=== PATIENT | male | born 1965 | race African-American/Black ===

== ENCOUNTER 2021-05-24 14:09 | Inpatient (IN) | payer OTHER ==
[~2021-05-24] VITALS: Ht 185.4 cm; Wt 57.8 kg
[2021-05-24 13:59] VITALS: BP 130/85
[2021-05-24 17:12] LABS: HEMATOCRIT 45.1 % (42.0-52.0); HEMOGLOBIN 14.8 gm/dL (14.0-18.0); MCHC 32.8 g/dL (28.0-37.0); MCV 82.2 fL (80.0-100.0); RBC 5.49 mil/uL (4.50-6.00); RDW 14.8 % (10.5-14.5); WBC 13.3 thou/uL (4.0-11.0)
[2021-05-24 17:43] LABS: ALBUMIN 2.4 g/dL (3.4-5.0); CALCIUM 8.9 mg/dL (8.5-10.1); CREATININE 0.9 mg/dL (0.7-1.3); POTASSIUM 4.7 mmol/L (3.5-5.1); TOTAL BILIRUBIN 0.3 mg/dL (0.2-1.0); TOTAL PROTEIN 7.4 g/dL (6.4-8.2)
[2021-05-24 18:21] VITALS: BP 106/75
[2021-05-24 19:30] VITALS: BP 107/70
[2021-05-25 03:40] VITALS: BP 103/67
--- NOTE | 2021-05-25 06:31 | NUR ---
PROGRESS PT A/O X4, UP WITH SBA NOT OOB THIS SHIFT. DENIES PAIN. CHEST TUBE TO RIGHT LATERAL FLANK INTACT DRSG REMAINS C/D/I NO LEAK AT DRSG SITE NOTED. ATRIUM WITH CONSTANT TURBULENT BUBBLES AND TIDALING NOTED. PT'S LUNGS MOSTLY DIMINISHED BUT SOME CRACKLES NOTED ONLY IN RIGHT UPPER LOBE PT DENIES COUGH. VOIDING PER URINAL. CONSENTS IN PRICING STRATEGIST AWAITING TO BE SIGNED PT STATED HE HAS NOT YET SPOKEN TO SURGEON. ON 13 LITERS O2 VIA HIGHFLOW NC. SATS IN MID TO UPPER 90'S. PT AWAKE ALL NIGHT WATCHING TV. DISCUSSED PENDING SURGERY. PT CALM AND RELAXED.
[2021-05-25 07:14] VITALS: BP 115/82
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
[2021-05-25 09:22] LABS: ALBUMIN 2.2 g/dL (3.4-5.0); CALCIUM 8.5 mg/dL (8.5-10.1); CREATININE 0.7 mg/dL (0.7-1.3); DIRECT BILIRUBIN 0.1 mg/dL (<0.1-0.2); PHOSPHORUS 3.1 mg/dL (2.6-4.7); POTASSIUM 4.9 mmol/L (3.5-5.1); TOTAL BILIRUBIN 0.4 mg/dL (0.2-1.0); TOTAL PROTEIN 6.2 g/dL (6.4-8.2)
[2021-05-25 15:38] VITALS: BP 113/72
[2021-05-25 15:45] VITALS: BP 105/61
[2021-05-25 16:00] VITALS: BP 113/59
--- NOTE | 2021-05-25 16:31 | NUR ---
Chart review. Unable to visit with debra. No anticipated discharge over the weekend. Will cont following as needed.
--- NOTE | 2021-05-25 19:48 | NUR ---
PATIENT ADMITTED TO ICU POST THORACOTOMY. RIGHT SIDE CHEST TUBE WITH TIDALING TO -20 SUCTION. 25 ML DRAINAGE. RIGHT RADIAL AMARIS - STABLE PRESSURES. CHANGED FROM 15 L NRB TO 15 L HIGH FLOW NASAL CANNULA BY RESPIRATORY. TITRATE OXYGEN TOLERATED. SATS IN HIGH 90'S. PATIENT DENIES ANY PAIN OR DISCOMFORT. STARTED ON MOLD CAPPER HELPER PUMP PER ORDERS. FLUIDS INFUSING. IV ABX GIVEN. MCCARTY IN PLACE. CALL LIGHT IN REACH. PATIENT DENIES ANY NEEDS OR CONCERNS.
[2021-05-25 20:00] VITALS: BP 106/65
[2021-05-26] VITALS (13 sets, daily range): BP systolic 93–118; BP diastolic 62–79
[2021-05-26 05:23] LABS: HEMATOCRIT 41.5 % (42.0-52.0); HEMOGLOBIN 13.5 gm/dL (14.0-18.0); MCHC 32.6 g/dL (28.0-37.0); MCV 82.7 fL (80.0-100.0); RBC 5.02 mil/uL (4.50-6.00); RDW 14.9 % (10.5-14.5); WBC 7.8 thou/uL (4.0-11.0)
[2021-05-26 05:50] LABS: CALCIUM 7.8 mg/dL (8.5-10.1); CREATININE 0.7 mg/dL (0.7-1.3); DIRECT BILIRUBIN 0.1 mg/dL (<0.1-0.2); PHOSPHORUS 2.4 mg/dL (2.5-4.9); POTASSIUM 4.2 mmol/L (3.5-5.1); TOTAL BILIRUBIN 0.4 mg/dL (0.2-1.0); TOTAL PROTEIN 6.4 g/dL (6.4-8.2)
--- NOTE | 2021-05-26 07:24 | NUR ---
ASSUMED CARE AT 1900. OFFICE MACHINES TEACHER INFUSING. PT SLEPT POORLY. TRIED TO TITRATE O2 BUT DESATTED TO UPPER 80'S, INCREASED BACK TO 15L. 275 ML OUT OF CHEST TUBE. SLOW PROGRESSION OF GOALS.
--- NOTE | 2021-05-26 19:35 | NUR ---
PATIENT ALERT/ORIENTED. VSS THROUGH OUT THIS SHIFT. DENIES ANY PAIN, COMFORTABLE WITH GROWTH MEDIA MIXER MUSHROOM PUMP INFUSING. RIGHT LATERAL CT TUBE TO WATERSEAL PER DR. FRASRE. RIGHT RADIAL AMARIS DISCONTINED. MCCARTY DISCONTINED. USING URINAL AT BEDSIDE. UP TO CHAIR FOR LUNCH WITH MINIMAL ASSIST. PATIENT WITH VERY POOR APPETITE AND POOR MOTIVATION. REMAINS ON 15L HIGH FLOW NC. REMAINS IN ISOLATION FOR COVID PNA.
[2021-05-27] VITALS (33 sets, daily range): BP systolic 89–130; BP diastolic 61–92
[2021-05-27 06:15] LABS: MCH 26.6 pg (26.0-34.0); MCHC 32.6 g/dL (28.0-37.0); MCV 81.7 fL (80.0-100.0); RBC 5.26 mil/uL (4.50-6.00); RDW 14.9 % (10.5-14.5); WBC 8.7 thou/uL (4.0-11.0)
--- NOTE | 2021-05-27 06:28 | NUR ---
Upon initial assessment pt desatting into upper 80s, 50% ventimask added to 15L HFC w/ improved sats. R lateral chest tube noted to have intermittent air leak, + tidaling, no sub q air at site. Pt rested well through remainder of night until around 0400. Lung sounds on right absent, O2 sats down into mid 80s with increased work of breathing noted. 100% NRB applied with minimal improvement. CT placed back to -20 sxn, however pt began coughing and desatting into low 80s. Placed back to water seal. Radiology called at 0417 and 0435 for stat CXR, at 0500 bedside CXR showed a complete pneumo. Dr. Hsu phoned and updated, orders received to place CT to -10 cm sxn. Pt tolerated much better and is now resting well on 15L HFC AND 100% NRB with O2 sat of 97%. Will attempt to wean O2. Pain has been well controlled with BEEF BONER. Pt voiding per urinal without difficulty. COVID precautions maintained. No family called this shift. Not progressing towards goals at this time. Will continue to monitor.
[2021-05-27 06:37] LABS: ALBUMIN 2.1 g/dL (3.4-5.0); CALCIUM 8.4 mg/dL (8.5-10.1); CREATININE 0.7 mg/dL (0.7-1.3); DIRECT BILIRUBIN 0.1 mg/dL (<0.1-0.2); PHOSPHORUS 2.6 mg/dL (2.6-4.7); TOTAL BILIRUBIN 0.5 mg/dL (0.2-1.0); TOTAL PROTEIN 6.2 g/dL (6.4-8.2)
--- NOTE | 2021-05-27 11:57 | NUR ---
REPORT GIVEN TO PRESLEY HOFF.
[2021-05-28] VITALS (23 sets, daily range): BP systolic 92–124; BP diastolic 58–77
[2021-05-28 05:38] LABS: HEMATOCRIT 41.4 % (42.0-52.0); HEMOGLOBIN 13.6 gm/dL (14.0-18.0); MCH 27.2 pg (26.0-34.0); MCHC 32.9 g/dL (28.0-37.0); MCV 82.7 fL (80.0-100.0); RBC 5.01 mil/uL (4.50-6.00); RDW 14.6 % (10.5-14.5); WBC 9.2 thou/uL (4.0-11.0)
[2021-05-28 05:46] LABS: ALBUMIN 2.1 g/dL (3.4-5.0); CALCIUM 8.1 mg/dL (8.5-10.1); CREATININE 0.7 mg/dL (0.7-1.3); DIRECT BILIRUBIN 0.2 mg/dL (<0.1-0.2); PHOSPHORUS 2.8 mg/dL (2.5-4.9); POTASSIUM 4.5 mmol/L (3.5-5.1); TOTAL BILIRUBIN 0.4 mg/dL (0.2-1.0); TOTAL PROTEIN 5.8 g/dL (6.4-8.2)
--- NOTE | 2021-05-28 06:00 | NUR ---
PT HAS RESTED QUIETLY ALL NIGHT. DENIES PAIN NOR DISCOMFORT. LUNGS DIMINISHED O2 SAT 95 % ON 13 L HF NC. AFEBRILE. RIGHT LATERAL CT [address] VOIDED 1000 CC FRANCISCA URINE. FENTANYL MOLDING MANAGER 15 MCG BASAL RATE. A VERY DELIGHTFUL GENTLEMAN. PROGRESSING TOWARD GOALS. WILL CONT TO MONITOR
--- NOTE | 2021-05-28 15:55 | HC ---
[facility] [place] [address] CONSULTATION Name: SAYDA MONTILLA SR Room #: 238-P [facility] IN M.R.#: [id number] Admission: 05/24/21 Attend Phys: Johnny Barcenas MD Discharge: Date of : 63 Report #: [id number] THIS REPORT FOR: cc: FAM - Family physician unknown FAM - Family physician unknown Nabeel Hsu MD ~ DATE OF SERVICE: 05/24/2021 HISTORY OF PRESENT ILLNESS: We were asked to see the patient. The patient is a 55-year-old transferred from [facility] Emergency Department. The patient presented there with worsening shortness of breath over the last 2-3 days. This was associated with a productive cough. The patient's at home was positive for COVID-19 a week ago. On admission around presentation to the Emergency Department, the patient had a large right-sided pneumothorax with mediastinal shift. Chest tube was placed, but it was never possible to completely ameliorate the pneumothorax. Chest tube was repositioned and chest CT scan was done. The patient was transferred to this facility (ultimately) for more definitive treatment of this air leak problem. At [facility], the patient received Zosyn, Decadron and IV fluids and management of his COVID pneumonia. PAST MEDICAL HISTORY: The patient denies such chronic problems as hypertension and diabetes. MEDICATIONS: Include Zosyn, acetaminophen, hydrocodone, dexamethasone, methylprednisolone. ALLERGIES: None known. REVIEW OF SYSTEMS: GENERAL: Denies previous weight change before this current illness. EYES: No double vision, left eye. No change in vision in the right eye. HENT: No headache, sinus problems, hearing problems. RESPIRATORY: Admits to productive cough. CARDIAC: Denies angina. Denies palpitations. GASTROINTESTINAL: Denies nausea, vomiting, diarrhea, pain, blood. GENITOURINARY: Denies urgency, frequency, blood. NEUROLOGIC: Denies motor or sensory problems. SKIN: Denies rash or infection. ENDOCRINE: Denies goiter or tremor. MUSCULOSKELETAL: Denies bone or joint pain. [facility] [address] [place] [address] CONSULTATION Name: SAYDA MONTILLA SR Room #: 238-P [facility] IN M.R.#: [id number] Admission: 05/24/21 Attend Phys: Johnny Barcenas MD Discharge: Date of : 63 Report #: [id number] PHYSICAL EXAMINATION: GENERAL: The patient is in bed with a nonrebreather mask . EYES: Traumatic enucleation, left eye. Right eye, no icterus. No arcus. NECK: No mass. No bruit. CHEST: Decreased breath sounds bilaterally. HEART: Rhythm regular. ABDOMEN: Soft, scaphoid. EXTREMITIES: No clubbing, cyanosis or edema. SKIN: No rash or infection. NEUROLOGIC: No motor or sensory loss. PSYCHIATRIC: Oriented x3, appropriate. MUSCULOSKELETAL: No bone or joint deformity or asymmetry. The chest tube was inspected. Chest tube appears to be in good position with an active air leak. I have reviewed the radiographic findings with the patient and discussed them in the context of his presentation. I have recommended surgery to include video-assisted thoracoscopy for resection of blebs and/or identification of the air leak. Risks and details of this, options and alternatives, were reviewed. Risks include but are not limited to bleeding, infection, anesthesia risks, heart and lung problems and recurrence of the problem. The chance that we would need to make a thoracotomy for definitive treatment was also discussed. The patient understands all of this and agrees with this approach. We plan to surgery for tomorrow. Thank you for the consult. <ELECTRONICALLY SIGNED> By: Nabeel Hsu MD 05/28/21 1555 1345 1428 Nabeel Hsu MD /nt
--- NOTE | 2021-05-28 15:55 | O ---
[facility] [place] [address] [place] [address] OPERATIVE REPORT Name: SAYDA MONTILLA SR Room #: 238-P ADM IN M.R.#: [id number] Admission: 05/24/21 Attend Phys: Johnny Barcenas MD Discharge: Date of : 63 Report #: [id number] THIS REPORT FOR: cc: FAM - Family physician unknown FAM - Family physician unknown Nabeel Hsu MD ~ DATE OF SERVICE: 05/25/2021 PREOPERATIVE DIAGNOSIS: Spontaneous pneumothorax with large persistent air leak in the setting of COVID pneumonia. POSTOPERATIVE DIAGNOSIS: Spontaneous pneumothorax with large persistent air leak in the setting of COVID pneumonia. OPERATION: Bronchoscopy, right video-assisted thoracoscopy, wedge resection of blebs, right thoracotomy with decortication of upper lobe, chemical pleurodesis and creation of a pleural tent. SURGEON: Nabeel Hsu MD. APPLICATIONS PROGRAMMER ANALYST: SORIN Mack (Jeremy). ANESTHESIA: General. INDICATIONS: The patient is a 55-year-old transferred from [facility] with a large persistent air leak. The setting of this is spontaneous pneumothorax sustained along with a case of COVID pneumonia. Chest x-ray showed mediastinal shift despite placement of chest tube and the patient had shortness of breath and a large air leak with no obvious technical explanation. FINDINGS AND TECHNIQUE: After general anesthesia was established, observing COVID protocols, flexible diagnostic bronchoscopy was performed. No endobronchial lesions were noted. A double lumen endotracheal tube was placed and its position ascertained with bronchoscopic guidance. The patient was positioned with right side up. Exposure was obtained through typical video-assisted thoracoscopy ports. There were intense adhesions between upper lobe, visceral pleura and parietal pleura. It was not possible to distinguish where mediastinal pleura began and lung end and because of this confusing anatomy related to old scarring, I made a decision to extend the incision to a thoracotomy. Once better exposure was obtained, we were able to identify the adhesions [facility] [address] [place] [address] OPERATIVE REPORT Name: SAYDA MONTILLA SR Room #: 238-P [facility] IN ..#: [id number] Admission: 05/24/21 Attend Phys: Johnny Barcenas MD Discharge: Date of : 63 Report #: [id number] between the upper lobe and mediastinal pleura. All of these adhesions were taken down. Even with this, the upper lobe did not reexpand. There appeared to be an envelope of scar covering and constraining the upper lobe and I did my best to decorticate all of this to help the upper lobe reexpand. Having done this blebs were identified in the upper lobe and these were resected. Fluid was instilled into the chest and air leaks were identified and we attempted to correct any air leak identified. Once we were satisfied with the decortication and the resection, chest tube was brought through the lowest port and doxycycline solution was instilled for chemical pleurodesis. I also dissected parietal pleura from chest wall and took this down in the form of a pleural tent to cover the upper lobe. The temperature was tacked to the lower lobe laterally and the chest tube was placed apically, so that the parietal pleura would cover the globe and that there might be some residual space between the parietal pleura and chest wall that would close in time. Hemostasis was ascertained in all areas. It should be mentioned that the thoracotomy was made in a rib sparing and nerve sparing approach and when we closed the thoracotomy this was continued to avoid any pressure on the intercostal nerve. The chest was closed in the usual fashion. The patient was taken back to the intensive care unit in good condition having tolerated the procedure well observing COVID protocols after surgery. <ELECTRONICALLY SIGNED> By: Nabeel Hsu MD 05/28/21 1555 [id number] 1033 Nabeel Hsu MD /nt
--- NOTE | 2021-05-28 16:03 | NUR ---
From [facility]. COVID +. Isolation. NRB mask. Chest tube. Cm spoke with sig other Nicole via phone call. Intro to transition of care. [facility] in [facility], then went to [facility] for 3-4 months. We live in apartment with lots of stair. there are stairs up to apartment, then go inside and stairs 24 + up to 3rd floor. Independent. 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 No DME, no dr or insurance because he was in [facility]. All in home got covid and some out quarantine now. We did not have the vaccine but going to get per Nicole. Will cont. following as needed for dc needs.
--- NOTE | 2021-05-28 19:34 | NUR ---
PATIENT ALERT/ORIENTED. FENTANYL COREMAKER EXPERIMENTAL PUMP DISCONTINUED. PATIENT DENIES ANY PAIN OR DISCOMFORT. RIGHT LATERAL CHEST TUBE TO -20 SUCTION, AIR LEAK PRESENT. TITRATED UP TO 15 L NC TO MAINTAIN SATS. PATIENT DESATS WITH ACTIVITY AND SLOWLY RECOVERS. DR. FRASER AWARE. STARTED ON APPITITE STIMULANT.
[2021-05-29] VITALS (24 sets, daily range): BP systolic 82–114; BP diastolic 50–75
[2021-05-29 06:04] LABS: ALBUMIN 2.3 g/dL (3.4-5.0); ANION GAP 14 mmol/L (7-16); BUN 15 mg/dL (7-18); CALCIUM 8.7 mg/dL (8.5-10.1); CHLORIDE 100 mmol/L (98-107); CO2 26 mmol/L (21-32); CREATININE 0.7 mg/dL (0.7-1.3); DIRECT BILIRUBIN < 0.1 mg/dL (<0.1-0.2); GLUCOSE 108 mg/dL (74-106); PHOSPHORUS 2.4 mg/dL (2.6-4.7); POTASSIUM 4.1 mmol/L (3.5-5.1); SGOT 33 U/L (15-37); SGPT 43 U/L (16-63); SODIUM 140 mmol/L (136-145); TOTAL BILIRUBIN 0.5 mg/dL (0.2-1.0); TOTAL PROTEIN 6.3 g/dL (6.4-8.2)
--- NOTE | 2021-05-29 07:29 | NUR ---
ASSUME CARE 1900. PT/VITALS STABLE. INTERMITTENT INCISIONAL PAIN NOTED. MODERATE ENDURANCE TO ACTIVITY. ASSESSMENT CHARTED. PROGRESSING MODERATELY WITH POC. CHEST TUBE IN PLACE /BLOODY DRAINAGE NOTED. DRESSING REINFORCED. VIGOROUS BUBBLING NOTED EVEN WITH REINFORCEMENT. SATS IN HIGH 90s/15L HIGH FLOW. SR ON MONITOR. PT GETS TACHY WITH ACTIVITY. EASILY SOB WITH ECERTION. VERY POOR APPETITE. NEEDS ENCOURAGEMENT TO EAT AND MIGHT BENEFIT FROM NUTRITIONAL SUPPLEMENTS. KENNETH CONTINUE TO MONITOR AND FOLLOW WITH POC
--- NOTE | 2021-05-29 10:53 | NUR ---
ASSUMED CARE OF PT AT 0700 DR. AGUDELO AT BEDSIDE AT 0945, NO NEW ORERS GIVEN
[2021-05-30] VITALS (25 sets, daily range): BP systolic 77–99; BP diastolic 49–69
[2021-05-30 14:11] LABS: ABSOLUTE NEUTROPHILS 16.3 thou/uL (1.4-8.2); BASOPHILS 0.1 % (0.0-2.0); EOSINOPHILS 0.2 % (0.0-3.0); HEMATOCRIT 44.3 % (42.0-52.0); HEMOGLOBIN 14.4 gm/dL (14.0-18.0); LYMPHOCYTES 3.3 % (24.0-44.0); MCH 26.4 pg (26.0-34.0); MCHC 32.5 g/dL (28.0-37.0); MCV 81.3 fL (80.0-100.0); MONOCYTES 0.9 % (1.0-8.0); POLYS 95.5 % (36.0-66.0); RBC 5.45 mil/uL (4.50-6.00); RDW 14.5 % (10.5-14.5); WBC 17.1 thou/uL (4.0-11.0)
[2021-05-30 14:16] LABS: PLATELET COUNT 341 thou/uL (150-400)
[2021-05-30 14:36] LABS: ALBUMIN 2.5 g/dL (3.4-5.0); CREATININE 0.9 mg/dL (0.7-1.3); POTASSIUM 4.6 mmol/L (3.5-5.1); TOTAL BILIRUBIN 0.5 mg/dL (0.2-1.0); TOTAL PROTEIN 6.4 g/dL (6.4-8.2)
[2021-05-30 14:46] LABS: HCO3 26.5 mmol/L (22.0-26.0); PO2 94.1 mmHg (80.0-100.0); pH 7.473 (7.360-7.450); sO2 97.6 % (92.0-98.0)
--- NOTE | 2021-05-30 18:23 | NUR ---
THIS RN ATTMEPTED AN IV ON PT 2 TIMES. WILL REQUEST IV TEAM SERVICES.
[2021-05-31] VITALS (24 sets, daily range): BP systolic 95–112; BP diastolic 60–79
--- NOTE | 2021-05-31 05:07 | NUR ---
ASSUMED CARE AT 1900. PT DENIES PAIN. HEAVY BUBBLING FROM CHEST TUBE, SOME FAINT CRACKLES AND WHEEZES AUDIBLE TO AUSCULTATION WELL. INCR O2 TO 13L SATS WERE SITTING AROUND 88%, NOW 90-93%. NPO AT MIDNIGHT FOR PROCEDURE. SLOW PROGRESSION TOWARDS GOALS.
[2021-06-01] VITALS (34 sets, daily range): BP systolic 84–106; BP diastolic 51–71
--- NOTE | 2021-06-01 07:58 | NUR ---
Chart review, COVID +, isolation. Going for procedure today. No anticipated dc over the weekend, will cont. following as needed for dc needs.
[2021-06-01 14:54] LABS: HEMATOCRIT 40.6 % (42.0-52.0); HEMOGLOBIN 13.3 gm/dL (14.0-18.0); MCH 26.9 pg (26.0-34.0); MCHC 32.7 g/dL (28.0-37.0); MCV 82.4 fL (80.0-100.0); RBC 4.92 mil/uL (4.50-6.00); RDW 14.8 % (10.5-14.5); WBC 25.1 thou/uL (4.0-11.0)
[2021-06-01 15:01] LABS: CALCIUM 7.8 mg/dL (8.5-10.1); CREATININE 0.9 mg/dL (0.7-1.3); POTASSIUM 4.4 mmol/L (3.5-5.1)
--- NOTE | 2021-06-01 15:36 | NUR ---
patient returns from OR at 1420
--- NOTE | 2021-06-01 19:38 | NUR ---
PATIENT HAS THOROCOTOMY PROCEDURE WITH RIGHT DECORTICATION OF LUNG TODAY. PATIENT RETURNS FROM PROCEDURE AT 1420. FENTANYL CRECHE ATTENDANT INITIATED. 13L HFNC. PATIENT PROGRESSING. CHEST TUBE TO RIGHT. NO BM.
[2021-06-02] VITALS (27 sets, daily range): BP systolic 87–151; BP diastolic 54–127
[2021-06-02 05:08] LABS: CREATININE 0.7 mg/dL (0.7-1.3); POTASSIUM 4.2 mmol/L (3.5-5.1)
[2021-06-02 05:30] LABS: HEMATOCRIT 37.5 % (42.0-52.0); HEMOGLOBIN 12.1 gm/dL (14.0-18.0); MCH 26.9 pg (26.0-34.0); MCHC 32.3 g/dL (28.0-37.0); MCV 83.1 fL (80.0-100.0); RBC 4.51 mil/uL (4.50-6.00); RDW 14.9 % (10.5-14.5); WBC 17.4 thou/uL (4.0-11.0)
--- NOTE | 2021-06-02 11:34 | NUR ---
RIGHT RADIAL AMARIS DISCONTIUED PER ORDERED. IV FLUIDS DISCONTINUED.
--- NOTE | 2021-06-02 11:34 | NUR ---
SENIOR COMMISSARY AGENT PUMP CLEARED WITH 2ND RN. CHANGED PUMP TO INFUSE WITH NO BASAL RIGHT. PATIENT CAN BOLUS PER ORDERED.
--- NOTE | 2021-06-02 19:56 | NUR ---
PATIENT ALERT/ORIENTED THROUGH OUT SHIFT. DROWSY THIS MORNING BUT MORE ALERT THE DAY WENT ON. CHANGED RAILROAD CARMAN PUMP TO HAVE NO BASAL RATE PER ORDERS FROM DR. FRASER. TITRATING DOWN ON OXYGEN FROM 13 L NC TO 8 L. PATIENT REFUSED MULTIPLE TIMES TO GET UP TO CHAIR, STATING HE'S NOT HAVING PAIN BUT HE IS "SORE" AND WOULD RATHER WAIT UNTIL TOMORROW. ENCOURAGED THE NEED FOR ACTIVITY AND CONTINUED TO REFUSE. MCCARTY DISCONTINUED, VOIDING POST REMOVAL. OVERALL PROGRESSING. R LATER CHEST TUBE REMAINS IN PLACE TO -20 SUCTION. SUBQ AIR NOTED TO AREA SURROUNDING.
--- NOTE | 2021-06-02 23:40 | NUR ---
Pt with nonsustained SVT , rates 180-190's. Pt denies of any CP or chest discomfort, BP stable, he performed Valsava maneuver w/o any improvement. Noified , see new order. Will obtain EKG per protocol.
--- NOTE | 2021-06-02 23:54 | NUR ---
Notified Dr.Forman sow of EKG result. No new intervention at this time. Pt remains CP free. VSS. Will monitor him closely.
[2021-06-03] VITALS (66 sets, daily range): BP systolic 75–109; BP diastolic 42–79
[2021-06-03 02:32] LABS: HEMATOCRIT 39.3 % (42.0-52.0); MCV 81.9 fL (80.0-100.0); RBC 4.8 mil/uL (4.50-6.00); RDW 14.3 % (10.5-14.5); WBC 15.7 thou/uL (4.0-11.0)
[2021-06-03 02:36] LABS: CALCIUM 8.5 mg/dL (8.5-10.1); CREATININE 0.7 mg/dL (0.7-1.3); MAGNESIUM 1.9 mg/dL (1.8-2.4); POTASSIUM 3.9 mmol/L (3.5-5.1)
--- NOTE | 2021-06-03 06:12 | NUR ---
No more episode of SVT episodes since received amiodarone IV bolus. He was slightly hypotensive with cardizem gtt. BPs has improved after stopped cardizem gtt. CT on Rt side remains functional properly, continue to have airleak. Denies of any CP or trouble breathing. Pain has been adequated control with fentanyl MONOTYPE KEYBOARD OPERATOR. Continue to monitor him closely.
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
--- NOTE | 2021-06-03 12:56 | EKG ---
[address] [place] [address] ELECTROCARDIOGRAM REPORT Name: SAYDA MONTILLA SR Room #: 238-P ADM IN M.R.#: [id number] Admission: 05/24/21 Attend Phys: Johnny Barcenas MD Discharge: Date of : 63 Report #: [id number] [facility] Test Date: 2021-06-02 Test Time: 23:44:10 Pat Name: SAYDA MONTILLA Department: Room: 238 P Gender: M Circulation Analyst: [id number] : 1965 Requested By: Johnny Barcenas Order Number: [id number] MD: Luis Fernando Honeycutt Measurements Intervals [place] Rate: 115 P: 81 CA: 167 QRS: 68 QRSD: 95 T: 60 QT: 323 QTc: 447 Interpretive Statements Sinus tachycardia with atrial premature complexes Diffuse ST segment elevation, consider early repolarization, pericarditis, or injury No previous ECG available for comparison Electronically Signed On 06-03-2021 12:56:43 CDT by Luis Fernando Honeycutt [email or web address] <ELECTRONICALLY SIGNED> By: Luis Fernando Honeycutt MD, [facility] 06/03/21 1256 2344 43 Luis Fernando Honeycutt MD, FACC /EPI
--- NOTE | 2021-06-03 18:38 | NUR ---
CALLED REGARDING EKG READING DONE LAST NIGHT, ALSO SEEN WITH ELEVATED ST ON THE MONITOR, WHEN INQUIRED, STATED BY MD, ST ELEVATION SEEN IN ALL PRIOR EKG STRIPS, NOT NECESSARY TO DRAW CARDIAC MARKER LABS.
--- NOTE | 2021-06-03 19:17 | NUR ---
PT REMAINS IN ISOLATION DUE TO COVID-19, BREATHING SLIGHTLY TACHY AT A RATE OF 20'S THROUGHOUT THE DAY. PT ALSO REMAINED HYPOTENSIVE AND TACHYCARDIC THROUGHOUT THE DAY, RIGHT CHEST TUBE CONTINUES TO LEAK AND PT HAS NOTICABLE SUB-Q ALONG THE RIGHT FLANK. CARDIOLOGY TEAM NOTIFIED OF FINDINGS. PT ABLE TO AMBULATE TO BEDSIDE CHAIR WITH ASSISTANCE TO HELP WITH IV POLE/CHEST TUBE. PT TOLERATED WELL, REMAINED IN CHAIR FOR APPROX 4HRS, PT HAD NO ADVERSE EVENTS TODAY.
[2021-06-04] VITALS (42 sets, daily range): BP systolic 78–134; BP diastolic 44–92
--- NOTE | 2021-06-04 04:52 | NUR ---
ASSUME CARE 1900. PT STABLE. BP RUNS LOW/SBP IN 80s-LOW 100s. MAP BETWEEN 55-60s. 500ML BOLUS X 1, GIVEN TO STABILIZE BP. DENIES ANY PAIN. RING FACER D/C'ED, PT ON PILLS FOR PAIN NEEDED. A/O X 4. POOR TOLERANCE TO ACTIVITY. COULD BENEFIT FROM PT/OT. UP TO CHAIR DURING THE DAY. NO DISTRESS NOTED THROUGH THE SHIFT. SR/ST OM MONITOR. NO DYSRRHYTHMIA NOTED. ASSESSMENT CHARTED. PROGRESSING WELL WITH POC. CHEST TUBE STILL IN PLACE/RIGHT SITE WITH INTENSE BUBBLING. DRESSING CDI. PLAN IS TO CONTINUE TO MONITOR AND MANAGE RESPIRATORY FUNCTION, AND IMPROVE ACTIVITY TOLERANE/STRENGTH. WILL CONTINUE TO MONITOR AND FOLLOW WITH POC
--- NOTE | 2021-06-04 10:44 | NUR ---
DISCUSSED WITH PHYSICIANS ASSISTANCE AT BEDSIDE W/ HOSPITALIST, PLAN FOR THE PATIENT AT THIS TIME IS TO PROMOTE INCENTIVE SPIROMETRY, WALK POSSIBLE, MOBILIZE LUNGS, SUFFICIENT DIETING. REGARDING THE CHEST TUBE, AFTER DECORTICATION AND PROCEDURES, PULMONARY FUNCTION TO IMPROVE, CONTINUE TO MONITOR CLOSELY ATTENTIONING TO OXYGENATION/CHANGE IN PT STATUS/MOBILIZATION OF CREPITUS RN CONTINUING TO MONITOR. DISUCSSING THESE FINDINGS WITH THE PATINET, PT VERBALIZES UNDERSTANDING
--- NOTE | 2021-06-04 15:09 | NUR ---
Chart review, unable to visit with michell Andres/t deya and enhanced isolation. O2 4 L per nasal cannula. Discuss during los with hospitalist and unit rounds. Encourage him to use IS. Has chest tube.
[2021-06-05] VITALS (19 sets, daily range): BP systolic 93–124; BP diastolic 53–79
--- NOTE | 2021-06-05 07:12 | NUR ---
ASSUME CARE 1900. PT/VITALS STABLE. SBP RUNS IN 90s- LOW 100s, WITH MAP FROM 65-HIGH 70s. DENEIS ANY PAIN. MODERATE TOLERANCE TO ACTIVITY. 3LNC TOLERATING WELL. SATS ABOUT 93%. ADEQUATE REST NOTED/NO DISTRESS OR DYSRRHYTHMIA NOTED. SR ON MONITOR. ASSESSMENT CHARTED. PROGRESSING WELL WITH POC. PLAN IS TRANSFER TO STEP DOWN UNIT FOR CONTINUUM OF CARE. WILL CONITNUE TO MONITOR AND FOLLOW WITH POC
--- NOTE | 2021-06-05 10:43 | NUR ---
PT IS PROGRESSING TOWARDS DISCHARGE AT THIS TIME, CHEST TUBE DRESSING WAS CHANGED TODAY, MODERATE SEROSANGUINEOUS FLUID SATURATED THE GAUZE, AIR BUBBLING PRESENT IN THE CHEST TUBE, R AXILLA/POSTERIOR WALL CREPITUS STILL PRESENT. PT DENIED PAIN MEDICATION WHEN ASKED. CURRENTLY AWAITING FOR TRANSFER
--- NOTE | 2021-06-05 14:38 | NUR ---
PT TRANSFERED HERE FROM ICU AT 1430. PT A/O X 4,DENIES PAIN.CCT-SR ON MONITOR. VSS UPON TRANSFER. R CHEST TUBE INTACT, NO DRAINAGE ON DRESSING AT THIS TIME. UPDATED TO ROOM, RT AT BEDSIDE FOR BREATHING TREATMENT. PT TRANSFERED TO BSC AND THEN TO BED WITH SBA. STEADY ON HIS FEET. WILL CONT TO MONITOR AND FOLLOW POC.
[2021-06-06 04:13] VITALS: BP 107/71
--- NOTE | 2021-06-06 04:35 | NUR ---
NO SIGNIFICANT CHANGES OVER NIGHT. PT DENIES ANY PAIN OR SIGNIFICANT SOA. SPO2 REMAINS STABLE ON 2-3L NC. RIGHT LATERAL CHEST TUBE (-20 SUCTION) PATENT AND INTACT, DRAINING SEROSANGINUOUS FLUID. AFEBRILE. VSS. NO MAJOR COMPLAINTS THIS SHIFT. PROGRESSING SLOWLY TOWARD POC GOALS. WILL MONITOR FURTHER.
--- NOTE | 2021-06-06 07:52 | O ---
[facility] [place] [address] OPERATIVE REPORT Name: SAYDA MONTILLA SR Room #: 361-P ADM IN M.R.#: [id number] Admission: 05/24/21 Attend Phys: Johnny Barcenas MD Discharge: Date of : 63 Report #: [id number] THIS REPORT FOR: cc: FAM - Family physician unknown FAM - Family physician unknown Nabeel Hsu MD ~ DATE OF SERVICE: 06/01/2021 PREOPERATIVE DIAGNOSES: Persistent air leak and persistent pneumothorax, status post thoracotomy. POSTOPERATIVE DIAGNOSES: Persistent air leak and persistent pneumothorax, status post thoracotomy. OPERATIONS: Bronchoscopy, reoperative right thoracotomy, decortication, resection and oversewing of the blebs and air leaks, inferior hilar release, pleural tent formation and application of ProGel. INDICATIONS: The patient is a 55-year-old who last week had a thoracotomy with resection of blebs and chemical pleurodesis. Unfortunately, the patient has had a persistent pneumothorax and persistent air leak. The patient has been treated for COVID pneumonia and it is in the throes of that all of this developed. FINDINGS AND TECHNIQUE: After general anesthesia was established, flexible diagnostic bronchoscopy was performed. No endobronchial lesions were noted. Secretions were aspirated from the tracheobronchial tree and a double lumen tube was positioned under bronchoscopic guidance. The patient was positioned with right side up. Exposure was obtained by opening the thoracotomy incision. The chest was entered through the fifth interspace utilizing the rib sparing nerve sparing approach that had been performed last time. The pleural tent was still in place. This was taken down so that we could better exposed the lung. With better visualization, we were able to identify a thin fibrous envelope over middle and lower lobe. Decortication was done of this to achieve better expansion of the middle and lower lobes. Decortication had been done of the upper lobe on the previous visit, but the investing envelope was not as obvious then due to interference from poor lighting with the PAPR device. In any event, on this visit to the operating room, better expansion of the lung was accomplished. An inferior pleural release was performed by dividing the pericardium along the [facility] [address] [place] [address] OPERATIVE REPORT Name: ELADIA ROSESAYDA Room #: 361-P [facility] IN M.R.#: [id number] Admission: 05/24/21 Attend Phys: Johnny Barcenas MD Discharge: Date of : 63 Report #: [id number] inferior, anterior and posterior aspects of the inferior pulmonary vein to allow the lung to elevate. Attempts were then made to ligate whatever leaks we identified. In particular, there were several areas in the upper lobe that required oversewing with Prolene. There was a raw area in the middle lobe and Progel was applied to this. Satisfied with the ligation of the leaks and with the lung decorticated to the best of our ability, the pleural tent was reconstructed to provide coverage to the upper lobe. A large bore chest tube was brought through the lowest stab wound and secured in position. Hemostasis was ascertained. The chest was then closed in a way to preserve the rib sparing nerve sparing approach. The patient tolerated all this well and was recovered in the room per COVID protocol and was taken back to the intensive care unit in good condition having tolerated the procedure well. All counts were reported as correct. <ELECTRONICALLY SIGNED> By: Nabeel Hsu MD 06/06/21 [id number] Nabeel Hsu MD /nt
--- NOTE | 2021-06-06 14:47 | NUR ---
SHARI reviewed chart and spoke with nursing and attending physician. Pt was transferred to from ICU. Pt remains in Enhanced Isolation due to COVID. PT is afebrile and on 2L of O2. Pt has chest tube in place. PT/OT maria a ordered today. [facility] consulted to determine if pt needs inpt acute rehab prior to discharging home. [employer] has applied for [place] Medicaid Disability on pt's behalf. SW spoke with pt via phone. Introduced role of SW. Pt is alert/orientated and states he lives at home with his . Prior to admission, pt was independent with ADLs. No use of DME. Pt does not currently have a PCP. SW discussed possibility of going to [facility] for rehab. Pt states he is hoping to discharge home and not need rehab. Awaiting therapy maria a and [facility]ons[facility] consult. SW is following to assist as needed with discharge planning.
[2021-06-06 16:36] VITALS: BP 96/64
[2021-06-06 19:40] VITALS: BP 92/62
[2021-06-07 03:40] VITALS: BP 101/60
--- NOTE | 2021-06-07 05:56 | NUR ---
PT MAKING PROGRESS TOWARDS GOALS. PT REPORTING THAT HE HAD BEEN DOWN TO O2 AT 1L PER NC UNTIL HE WORKED WITH PT. "THEY HAD TO TURN IT UP WHEN I WAS WORKING WITH THEM." O2 AT 2L PER RN SHIFT REPORT BUT ON 3L UPON INITIAL ASSESSMENT. WILL HAVE DAY RN DECREASE O2 AT PT TOLERATES WHILE AT REST.
[2021-06-07 07:38] VITALS: BP 98/59
[2021-06-07 10:37] LABS: BE(vivo) 1.6 mmol/L (-2 to +3); HCO3 23.9 mmol/L (22.0-26.0); PCO2 30.8 mmHg (35.0-45.0); PO2 62.3 mmHg (80.0-100.0); pH 7.507 (7.360-7.450)
[2021-06-07 11:27] VITALS: BP 93/54
--- NOTE | 2021-06-07 13:07 | NUR ---
SW reviewed chart and spoke with nursing and attending physician. Pt remains in Enhanced Isolation due to COVID. Pt is afebrile and had to be placed on 10L of O2 after working with therapy earlier today. Chest time in place. Pt is on IV steorids. [facility] consulted and following for possible admission to inpt acute rehab. SW is following to assist as needed with discharge planning.
[2021-06-07 15:26] VITALS: BP 90/52
--- NOTE | 2021-06-07 18:15 | NUR ---
PT HAD EPISODE OF DESAT WITH ACTIVITY DURING WORK WITH OT THIS MORNING. PT WAS ABLE TO REGAIN SATS IN HIGH 80'S TO LOW 90'S WITH THE ADDITION OF 10L VIA NC. OT STATES PT LOWEST OXYGEN RATE WAS 74% ON 2L. PT WAS ABLE TO SUCCESSFULLY MOVE BACK FROM CHAIR TO BED WITHOUT DESAT. PT STATES HE FEELS THAT HE 'JUST MOVED TOO EARLY IN THE DAY' AND THAT IS WHY HE HAD DESAT. DR SPENCER, DR AGUDELO AND RT PAGED TO ASSIST WITH PT. CHEST TUBE DRAINAGE SYSTEM CHANGED. NO DRESSING CHANGE PER DR SPENCER. PT LATER WAS ABLE TO DECREASE O2 VIA NC TO 8L. STATES COMFORT WHILE RESTING IN BED. APPETITE IS INCREASING.
[2021-06-07 20:25] VITALS: BP 86/51
--- NOTE | 2021-06-08 05:06 | NUR ---
Patient making slow progress towars outcome goals. Vital signs and ryhthm stable. Oxygenation optimal with 6L/NC. Right chest tube intact, connected to -20 suction with air leak. Drainage serosanguinous, frothy and more serous this morning. Hydrocodone given for pain with relief.
[2021-06-08 05:10] VITALS: BP 100/63
[2021-06-08 07:33] VITALS: BP 96/53
[2021-06-08 11:20] VITALS: BP 102/57
--- NOTE | 2021-06-08 14:36 | NUR ---
SHARI reviewed chart and spoke with nursing and attending physician. Pt remains in Enhanced Isolation due to COVID. Pt is afebrile and on 2L of O2. Pt has chest tube in place and is on IV steroids. PT/OT is working with pt. SW discussed case with [facility] industrial rehabilitation consultant. No weekend discharge planned. SHARI placed call to pt's room. No answer. [employer] has applied for [place] on pt's behalf. SHARI is following to assist as needed with discharge planning.
--- NOTE | 2021-06-08 19:15 | NUR ---
assumed patient care at 0700. tolerated on 2l/nc. no 02 sat desat noted. right chest tube still leeking. 100ml out. will keep monitor.
[2021-06-08 19:44] VITALS: BP 104/53
--- NOTE | 2021-06-09 02:28 | NUR ---
continues on 2 liters n/c. denies concerns. he is thankful and apprectiative. resting quietly tonight.
[2021-06-09 04:58] VITALS: BP 95/63
[2021-06-09 07:49] VITALS: BP 99/51
[2021-06-09 11:24] VITALS: BP 135/50
[2021-06-09 15:30] VITALS: BP 119/59
--- NOTE | 2021-06-09 17:38 | NUR ---
ASSUMED PATIENT CARE AT 0700. A/O X4. ON 1L/NC. NO DISTRESS NOTED RIGHT CHEST TUBE STILL LEEKING. SLOWLY TOWARDS POC GOALS.
[2021-06-09 19:19] VITALS: BP 106/49
--- NOTE | 2021-06-09 22:10 | NUR ---
PT SITTING UP IN BED, TALKING ON PHONE. O2 PER NC. CONTINUOUS PULSE OX. CHEST TUBE DRESSING DRY AND INTACT. CHEST TUBE HAS CONTINUED AIR LEAK. CRACKLES AT INSERTION SITE. PT REQUESTED HS SNACK. PT CALLS FOR ASSITANCE. PT DECLINED SLIDING SCALE COVERAGE.
[2021-06-10 04:18] LABS: CALCIUM 8.6 mg/dL (8.5-10.1); CREATININE 0.7 mg/dL (0.7-1.3); PHOSPHORUS 3.3 mg/dL (2.5-4.9); TOTAL BILIRUBIN 0.3 mg/dL (0.2-1.0); TOTAL PROTEIN 6.2 g/dL (6.4-8.2)
[2021-06-10 04:21] LABS: POTASSIUM 5.2 mmol/L (3.5-5.1)
[2021-06-10 04:24] LABS: HEMOGLOBIN 11.4 gm/dL (14.0-18.0); MCH 27.3 pg (26.0-34.0); MCHC 32.6 g/dL (28.0-37.0); MCV 83.9 fL (80.0-100.0); PLATELET COUNT 270 thou/uL (150-400); RBC 4.17 mil/uL (4.50-6.00); RDW 15.1 % (10.5-14.5); WBC 23.9 thou/uL (4.0-11.0)
[2021-06-10 05:12] VITALS: BP 90/58
[2021-06-10 06:07] LABS: ABSOLUTE NEUTROPHILS 21.7 thou/uL (1.4-8.2); PLATELET ESTIMATE NORMAL
[2021-06-10 07:40] VITALS: BP 94/63
[2021-06-10 11:33] VITALS: BP 94/55
[2021-06-10 15:35] VITALS: BP 111/63
[2021-06-10 19:01] VITALS: BP 98/61
--- NOTE | 2021-06-10 19:23 | NUR ---
PT SITTING IN BED WATCHING TV. CHEERFUL TALKATIVE. CHEST TUBE INTACT. CRACKLES BUE LOBES AND BY CHEST TUBE SITE. DRESSING INTACT REINFORCED ON DAY SHIFT. PT VERBALIZED UNDERSTANDING TO PLACE NC 02 ON PRIOR TO AMBULATION. PT CALLS FOR ASSISTANCE.
[2021-06-10 23:55] LABS: URINE BILIRUBIN NEGATIVE (Negative); URINE BLOOD NEGATIVE (Negative); URINE CLARITY CLEAR; URINE COLOR YELLOW; URINE GLUCOSE-RANDOM* NEGATIVE (Negative); URINE KETONES NEGATIVE (Negative); URINE LEUKOCYTES-REFLEX NEGATIVE (Negative); URINE NITRITE-REFLEX NEGATIVE (Negative); URINE PROTEIN (DIPSTICK) NEGATIVE (Negative); URINE UROBILINOGEN 0.2 E.U./dl (0.2-1.0)
[2021-06-11 04:45] VITALS: BP 102/59
[2021-06-11 07:55] LABS: ABSOLUTE NEUTROPHILS 11.5 thou/uL (1.4-8.2); BASOPHILS 0.4 % (0.0-2.0); EOSINOPHILS 0.2 % (0.0-3.0); HEMATOCRIT 35.5 % (42.0-52.0); HEMOGLOBIN 11.3 gm/dL (14.0-18.0); LYMPHOCYTES 17.3 % (24.0-44.0); MCH 26.5 pg (26.0-34.0); MCHC 31.8 g/dL (28.0-37.0); MCV 83.3 fL (80.0-100.0); MONOCYTES 5.8 % (1.0-8.0); PLATELET COUNT 316 thou/uL (150-400); POLYS 76.3 % (36.0-66.0); RBC 4.26 mil/uL (4.50-6.00); RDW 15.1 % (10.5-14.5); WBC 15.1 thou/uL (4.0-11.0)
[2021-06-11 08:03] VITALS: BP 103/61
[2021-06-11 08:06] LABS: ALBUMIN 2.2 g/dL (3.4-5.0); CALCIUM 8.8 mg/dL (8.5-10.1); CREATININE 0.9 mg/dL (0.7-1.3); PHOSPHORUS 3.8 mg/dL (2.6-4.7); POTASSIUM 4.1 mmol/L (3.5-5.1); TOTAL BILIRUBIN 0.2 mg/dL (0.2-1.0); TOTAL PROTEIN 6.1 g/dL (6.4-8.2)
[2021-06-11 11:43] VITALS: BP 95/56
[2021-06-11 15:33] VITALS: BP 111/67
--- NOTE | 2021-06-11 17:11 | NUR ---
PT HAD STEADY DAY, ABLE TO BE ON ROOM AIR WITH EXCEPTION OF USING BSC, THEN USED 3L VIA NC FOR SUPPLEMENTATION. PT HAD NO OTHER COMPLAINTS OR CONCERNS DURING SHIFT.
[2021-06-11 19:16] VITALS: BP 93/58
--- NOTE | 2021-06-12 03:57 | NUR ---
continues on room air tonight. resting quietly after taking the hydrocodone for back pain. no discharge concerns voiced.
[2021-06-12 05:35] VITALS: BP 84/53
[2021-06-12 08:27] VITALS: BP 98/61
[2021-06-12 11:52] VITALS: BP 92/59
[2021-06-12 17:23] VITALS: BP 108/56
--- NOTE | 2021-06-12 17:23 | NUR ---
CHEST TUBE TO WATER SEAL NOW PER DR. FRASER, PATENT, INTACT AND IN PLACE. CHEST TUBE MONITOR EVERY 2 HOURS AND NO SIGNS OF DISTRESS NOTED. PT ON ROOM AIR, DENIES ANY SOB. USES URINAL. OFF ISOLATION NOW PER EDGARDO ROTHMAN. ANTICIPATING FOR D/C TO REHAB.
[2021-06-12 19:39] VITALS: BP 98/59
--- NOTE | 2021-06-12 23:25 | NUR ---
PROGRESS PT A/O X4. UP WITH SBA TO BSC. CHEST TUBE TO RIGHT FLANK INTACT ATRIUM TO WATERSEAL. SOME BUBBLING AND TIDALING NOTED. DRESSING INTACT WITH TUBE STILL AT CORRECT MARKING TAPE IS SECURE. INCISION TO RIGHT SCAPULA KRYSTAL WITH INTACT SUTURES AND DERMABOND IN PLACE, INCISION IS WELL APPROXIMATED WITH NO DRAINAGE, REDNESS OR S/S OF INFECTION. PT DENIES PAIN. VOIDING QS. HAD SOME ALEXIS CRACKERS AND MILK BEFORE BED. DENIES PAIN. TELEMETRY INTACT READING SR.
[2021-06-13 04:11] VITALS: BP 103/64
[2021-06-13 08:01] VITALS: BP 111/67
--- NOTE | 2021-06-13 11:21 | NUR ---
PT CHEST TUBE CLAMPED PER DR. FRASER, PT TOLERATING IT WELL. O2 SAT BTWN 90-93%, ON 2L OF O2 WITH ACTIVITY. NO SIGNS OF RESPIRATORY DISTRESS NOTED. OFF ISOLATION. ANTICIPATING FOR D/C TO REHABD SOON. DENIES ANY NEEDS CHARLEE, WILL CONTINUE TO MONITOR
[2021-06-13 11:23] VITALS: BP 103/62
--- NOTE | 2021-06-13 11:52 | NUR ---
SHARI reviewed chart and spoke with nursing and attending physician. Enhanced Isolation precautions have been discontinued. Chest tube clamped this morning. Pt is not requiring O2. [facility] is following for possible admission to in acute rehab. SW spoke with pt via phone to provide update and discuss discharge plan. Pt states he would like to discuss the discharge disposition with the physicians. SHARI explained possible options: [facility] v. Home with HH. Pt verbalized understanding. [employer] has applied for [place] Medicaid. SHARI contacted [employer] to confirm status of Medicaid application. Awaiting input from [employer] at this time. SHARI is following to assist as needed with discharge planning.
--- NOTE | 2021-06-13 14:15 | NUR ---
CHEST TUBE TAKEN OUY BY DR. FRASER, PT TOLERATED IT WELL. XRAY DONE. NO SIGNS OF DITRESS NOTED. WILL CONTINUE TO MONITOR
[2021-06-13 15:18] VITALS: BP 105/59
[2021-06-13 19:58] VITALS: BP 91/57
--- NOTE | 2021-06-13 22:23 | NUR ---
PT SITTING IN BED WATCHING TV. CHEERFUL. DISCUSSING PLAN TO ATTEND REHAB TOMORROW. LUNGS CLEAR UPPER LOBES, CREPITUS BY PRIOR CHEST TUBE SITE. DRESSINGS INTACT AND DRY ON UPPER AND MID BACK. PT CALLS FOR ASSISTANCE. PT USES O2 PER NC WITH ADLS AND AMBULATION. SNACK PROVIDED.
--- NOTE | 2021-06-13 23:11 | NUR ---
REPORT CALLED TO [facility]. PT WILL TRANSFER ON BED. PT WILL HAVE ALL BELONGINGS TRANSFERED WITH PT. PT VERBALIZED UNDERSTANDING FOR TRANSFER.
[2021-06-14] VITALS (7 sets, daily range): BP systolic 96–114; BP diastolic 51–66
--- NOTE | 2021-06-14 04:53 | NUR ---
ADMITTED THIS PATIENT FROM 3[facility] ON 06/13/21 AROUND 2300H.PATIENT IS ALERT AND ORIENTED X4.ON ROOM AIR BREATHING SPONTANEOUSLY, USES OXYGEN PER NC WITH ADLS AND AMBULATION.WITH POST CHEST TUBE INSERTION SITE COVERED WITH DRESSING C/D/I.NOT IN PAIN OR DISTRESS.KEPT ON PULSE OXIMETER TO MONITOR OXYGEN SATURATION.ALL NEEDS ATTENDED.
--- NOTE | 2021-06-14 15:34 | NUR ---
Patient transferred to CCU from [facility]. Patient with tenative dc today. Sp with acute rehab. Patient too high level for acute rehab. Spoke with [facility] for kv[facility] visits. They are able to accept patient for service. Request Sat/Excercise for possible home oxygen.
[2021-06-15] VITALS (7 sets, daily range): BP systolic 94–117; BP diastolic 58–87
--- NOTE | 2021-06-15 02:32 | NUR ---
TODAY THIS PT HAS BEEN NSR WITH STABLE VS AND NO STATED PAIN. HE HAS HAD A STABLE BLOOD SUGAR SO NO INSULIN GIVEN. HE HAS OTHERWISE BEEN ASLEEP FOR MOST OF THE NIGHT BESIDES USING THE URINAL AT THE BEDSIDE.
[2021-06-15] MEDS ORDERED: PACERONE 200 M200 M1 PO (12:56)
[2021-06-15] MEDS ORDERED: CARDIZEM CD 18180 M3 PO (12:56)
[2021-06-15] MEDS ORDERED: MARINOL 2.5 MG2.5 M1 PO (12:56)
[2021-06-15] MEDS ORDERED: DECADRON6 MG PO (12:56)
[2021-06-15] MEDS ORDERED: PEPCID20 MG PO (12:56)
[2021-06-15] MEDS ORDERED: ZINC SULFATE50 MG PO (12:56)
[2021-06-15] MEDS ORDERED: IPRAT-ALBUT 0.5-3 ML INH (12:56)
--- NOTE | 2021-06-15 14:33 | NUR ---
Patient to dc home. His will transport home. Arranged home oxygen with [facility]. 2 liters with activity. [facility] accepting for kvng visits Faxed orders. Discussed above with patient no further needs.
== END 2021-06-15 17:17 | disposition home health service (06) | DRG 163 ==
LOC: 3W 14:09 → TBA 05-25 08:59 → ICU 05-25 15:11 → 3W 06-05 14:16 → 2N 06-13 23:30
PROVIDERS: Hospitalist; Internal Medicine; Nurse Practitioner Family; Pediatrics; Physician Assistant; Specialist; ADMIT Hospitalist; ATTEND Hospitalist
PROC: XW033H5 Introduction of Tocilizumab into Peripheral Vein, Percutaneous Approach, New Technology Group 5 (ICD-10-PCS; principal; 2021-05-24)
PROC: 5A0955A Assistance with Respiratory Ventilation, Greater than 96 Consecutive Hours, High Flow/Velocity Cannula (ICD-10-PCS; principal; 2021-05-24)
PROC: 0W9940Z Drainage of Right Pleural Cavity with Drainage Device, Percutaneous Endoscopic Approach (ICD-10-PCS; 2021-05-25)
PROC: 0BBC4ZZ Excision of Right Upper Lung Lobe, Percutaneous Endoscopic Approach (ICD-10-PCS; 2021-05-25)
PROC: 3E0L4GC Introduction of Other Therapeutic Substance into Pleural Cavity, Percutaneous Endoscopic Approach (ICD-10-PCS; 2021-05-25)
PROC: 0BNC4ZZ Release Right Upper Lung Lobe, Percutaneous Endoscopic Approach (ICD-10-PCS; 2021-05-25)
PROC: XW033E5 Introduction of Remdesivir Anti-infective into Peripheral Vein, Percutaneous Approach, New Technology Group 5 (ICD-10-PCS; 2021-05-25)
PROC: 0BNN4ZZ Release Right Pleura, Percutaneous Endoscopic Approach (ICD-10-PCS; 2021-06-01)
PROC: 0W9940Z Drainage of Right Pleural Cavity with Drainage Device, Percutaneous Endoscopic Approach (ICD-10-PCS; 2021-06-01)
PROC: 0BNF4ZZ Release Right Lower Lung Lobe, Percutaneous Endoscopic Approach (ICD-10-PCS; 2021-06-01)
PROC: 0BND4ZZ Release Right Middle Lung Lobe, Percutaneous Endoscopic Approach (ICD-10-PCS; 2021-06-01)
DX: U07.1 COVID-19 (principal); J96.21 Acute and chronic respiratory failure with hypoxia; J12.82 Pneumonia due to coronavirus disease 2019; E43 Unspecified severe protein-calorie malnutrition; J93.0 Spontaneous tension pneumothorax; I47.1 Supraventricular tachycardia; Z68.1 Body mass index [BMI] 19.9 or less, adult; J44.0 Chronic obstructive pulmonary disease with (acute) lower respiratory infection; D72.829 Elevated white blood cell count, unspecified; R79.89 Other specified abnormal findings of blood chemistry; D64.9 Anemia, unspecified; F17.210 Nicotine dependence, cigarettes, uncomplicated; I10 Essential (primary) hypertension; Z80.3 Family history of malignant neoplasm of breast; Z79.899 Other long term (current) drug therapy
CPT/HCPCS: 10078; 10081; 10203; 10879; 50101; 50386; 50403; 50455; 50654; 50739; 51301; 52138; 52265; 52266; 54118; 56462; 56524; 56525; 56526; 56527; 56528; 58585; 58870; 62110; 62900; 65020; 65129

== ENCOUNTER → 2021-06-27 | Outpatient (CLI) | payer OTHER ==
[~2021-06-27] MED LIST: CARDIZEM CD 18180 M3 PO; DECADRON6 MG PO; IPRAT-ALBUT 0.5-3 ML INH; MARINOL 2.5 MG2.5 M1 PO; PACERONE 200 M200 M1 PO; PEPCID20 MG PO; ZINC SULFATE50 MG PO
== END ==
LOC: RAD 11:22
PROVIDERS: ATTEND Surgery Vascular Surgery
DX: J43.9 Emphysema, unspecified (principal); J98.11 Atelectasis; J93.83 Other pneumothorax